=== PATIENT | male | born 1955 | race Caucasian/White ===

== ENCOUNTER → 2016-12-28 | Outpatient (CLI) | payer BC ==
[~2016-12-28] MED LIST: ADVAIR 100-501 EAC1 INH; ADVAIR 5001 DISK W/D; ADVAIR 5001 DISK W/D PO; ALBUTEROL17 GM; ALBUTEROL17 GM INH; ATROVENT HFA12.9 GM; CIPRO PO; CLARITIN10 M2 PO; COMBIVENT INH14.7 GM INH; COMPLERA TABLE1 EACH PO; COUMADIN PO; DOXYCYCLINE HY100 M3 PO; FISH OIL 1,0001 CAP PO; FLEXERIL; FLEXERIL PO; FLOMAX0.4 M1 PO; FLONASE16 GM; FROVA2.5 MG PO; LORTAB 10-5001 EACH PO; MICRO-K PO; MYCOSTATIN15 GM TOP; NEXIUM PO; NORCO 5/325 TAB1 TAB PO; OXYGEN INH; PERCOCET 10/3251 TAB PO; PERCOCET10; PHENERGAN25 MG PO; PRILOSEC PO; PROAIR HFA8.5 GM INH; PROVENTIL INH0.5 ML HHN; PROVENTIL INH0.5 ML NEB; SINGULAIR; SINGULAIR PO; STOOL SOFTENER; TAMIFLU75 MG PO; ZANAFLEX; ZANAFLEX PO; ZITHROMAX PO; ZYRTEC; ZYRTEC PO; [UNRECOGNIZED DRUG - OTHER] PO; [UNRECOGNIZED DRUG - REMARK]
[2016-12-28 12:20] LABS: BASOPHIL# 0.1 X10e3 (0-0.3); EOSINOPHIL# 0.1 X10e3 (0-0.7); EOSINOPHIL% 2.8 % (0.0-7.0); HEMATOCRIT 45.6 % (38.0-50.0); HEMOGLOBIN 14.9 gm/dL (13.0-16.0); LYMPHOCYTE% 41.6 % (17.0-45.0); MEAN CELL VOLUME 85.9 FL (83-96); MEAN CORPUSCULAR HEMOGLOBIN 28.1 PG (28-34); MEAN CORPUSCULAR HGB CONC 32.7 g/dL (30-36); MEAN PLATELET VOLUME 8.5 FL (6.5-11.5); MONOCYTE# 0.5 X10e3 (0-1.0); MONOCYTE% 9.7 % (3.0-12.0); NEUTROPHIL# 2.1 X10e3 (1.5-7.1); NEUTROPHIL% 43.9 % (40-75); PLATELET COUNT 212 X10e3 (140-420); RED BLOOD COUNT 5.31 X10e (3.90-5.60); WHITE BLOOD COUNT 4.7 X10e3 (4.0-10.5)
[2016-12-28 12:22] LABS: DIFF IND NO
[2016-12-28 13:11] LABS: ALBUMIN SERUM 4.5 g/dL (3.5-5.0); ALKALINE PHOSPHATASE 57 U/L (32-92); ALT (SGPT) 16 U/L (10-40); AST (SGOT) 17 U/L (10-42); BILIRUBIN,TOTAL 0.9 mg/dL (0.2-2.0); BLOOD UREA NITROGEN 14 mg/dL (9-23); CALCIUM SERUM 9.3 mg/dL (8.4-10.2); CARBON DIOXIDE 28 mmol/L (22-31); CHLORIDE 107 mmol/L (100-111); GLOM FILT RATE Estimated ABOVE60 mL/min (>60); GLUCOSE FASTING 85 mg/dL (70-110); POTASSIUM 4.4 mmol/L (3.5-5.1); PROTEIN TOTAL SERUM 7.7 g/dL (6.0-8.3); SODIUM 137 mmol/L (135-145)
[2016-12-30 17:05] LABS: CD4 % (PNL) 22 % (30-61); HIV1 LOG COPIES/ML <1.30 (<1.30); HIV1COPIES/ML <20 (<20)
== END | disposition home or self-care (01) ==
LOC: CLAB 11:33
PROVIDERS: Internal Medicine Infectious Disease
DX: B20 Human immunodeficiency virus [HIV] disease (principal); Z79.899 Other long term (current) drug therapy
CPT/HCPCS: 36415; 80053; 85025; 86361; 87536

== ENCOUNTER → 2017-02-15 | Day surgery (SDC) | payer BC ==
--- NOTE | ~2017-02-15 | OR ---
Unit #: [id number] #: [id number] Patient: CARYL RICHARDS [id number] [address] [place], [place] [address] [id number] O MR#: [id number] NAME: CARYL RICHARDS ROOM: Date of Procedure: 02/15/2017 Admission Date: 02/15/2017 Surgeon: Tae Carrillo M.D. : 1955 Attending Physician: Tae Carrillo M.D. Primary Care Physician: Lindsay Jackson M.D. OPERATIVE REPORT PREOPERATIVE DIAGNOSES Neck pain, cervical radiculopathy, degenerative cervical disk disease, cervical spinal stenosis. POSTOPERATIVE DIAGNOSES Neck pain, cervical radiculopathy, degenerative cervical disk disease, cervical spinal stenosis. PROCEDURE PERFORMED Cervical epidural steroid injection with intravenous sedation and fluoroscopic guidance for needle localization. INDICATIONS FOR PROCEDURE The patient is a 61-year-old male with return of neck and bilateral upper extremity pain due to multilevel multifactorial degenerative cervical disk disease, most significant at C4 through C7. This flared up during therapy for his knee. In the past, he had done well with epidural steroids in 2013 that gave him little over a year of improvement. His symptom complex again is consistent with his irritation. He failed to settle with conservative measures, so the plan is to repeat an epidural steroid injection based on history, pathology, symptomatology, and treatment options. DESCRIPTION OF PROCEDURE The patient was placed in a seated position. Standard monitors were applied. 2 mg of Versed were given for sedation and anxiolysis, which were adequate. Vital signs remained stable. Sterile prep and drape then of the cervical area was performed. The skin at the C5-C6 level was localized with 1% lidocaine. An 18-gauge MaxCDNtead needle was then advanced via hanging drop technique and fluoroscopic guidance in toward the epidural space. The patient did not complain of pain or paresthesia during needle advancement. After confirming proper positioning with fluoroscopy and radiographic contrast, 80 mg of Depo-Medrol and 2 mL of 0.25% bupivacaine were deposited. The patient tolerated the procedure well and was discharged to the recovery room in stable condition. Dictated by... Cameron Li/mikey TD: 02/16/2017 03:02 Unit #: [id number] #: [id number] Patient: CARYL RICHARDS JOB #: [id number] OPERATIVE REPORT Page 1 of 1 X Tae Carrillo MD X PROCEDURE OPERATIVE NOTE
== END | disposition home or self-care (01) ==
LOC: CCSC 08:05
DX: M50.121 Cervical disc disorder at C4-C5 level with radiculopathy (principal); M50.122 Cervical disc disorder at C5-C6 level with radiculopathy; M50.123 Cervical disc disorder at C6-C7 level with radiculopathy; M48.02 Spinal stenosis, cervical region
CPT/HCPCS: J1040; J2250

== ENCOUNTER → 2017-03-01 | Day surgery (SDC) | payer BC ==
--- NOTE | ~2017-03-01 | OR ---
Unit #: [id number] #: [id number] Patient: CARYL RICHARDS [id number] [address] [place], [place] [address] [id number] O MR#: [id number] NAME: CARYL RICHARDS ROOM: Date of Procedure: 03/01/2017 Admission Date: 03/01/2017 Surgeon: Tae Carrillo M.D. : 1955 Attending Physician: Tae Carrillo M.D. Primary Care Physician: Lindsay Jackson M.D. PROCEDURE OPERATIVE NOTE PREOPERATIVE DIAGNOSIS Neck pain, cervical radiculopathy, degenerative cervical disc disease, cervical spinal stenosis. POSTOPERATIVE DIAGNOSIS Neck pain, cervical radiculopathy, degenerative cervical disc disease, cervical spinal stenosis. PROCEDURE PERFORMED Cervical epidural steroid injection with fluoroscopic guidance and needle localization. HISTORY The patient is a 61-year-old male with neck and bilateral upper extremity radicular pain for multiple years. He has failed conservative treatment and epidural steroids had helped until about three years ago when he had resurgence of the pain. The plan is to repeat those injections. He has significant disease at C4-C5 and C5-C6 and C6-C7 levels. Initial injection two weeks ago resulted in significant improvement in the neck and arm pain. Based on his good partial response of pathology and symptomatology we will proceed with the second injection today. ANESTHESIA Local. PROCEDURE The patient was placed in the seated position. Standard monitors were applied. A sterile prep and drape of the cervical area was performed. The skin at the C5-C6 level was localized with 1% lidocaine. An 18-gauge Mahindra REVAtead needle was then advanced via the hanging drop technique and fluoroscopic guidance in toward the epidural space. The patient did not complain of pain or paresthesia. After confirming proper positioning on fluoroscopy, 80 mg of Depo-Medrol and 2 mL of 0.25% bupivacaine were deposited. The patient tolerated the procedure otherwise well and was discharged to the recovery room in stable condition. Dictated by... Tae Carrillo M.D. LHP/gz Unit #: [id number] #: [id number] Patient: CARYL RICHARDS TD: 03/01/2017 09:43 JOB #: [id number] CC: Cameron Li M.D. PROCEDURE OPERATIVE NOTE Page 1 of 1 X Tae Carrillo MD X PROCEDURE OPERATIVE NOTE
== END | disposition home or self-care (01) ==
LOC: CCSC 08:12
DX: M50.121 Cervical disc disorder at C4-C5 level with radiculopathy (principal); M50.122 Cervical disc disorder at C5-C6 level with radiculopathy; M50.123 Cervical disc disorder at C6-C7 level with radiculopathy; M48.02 Spinal stenosis, cervical region
CPT/HCPCS: J1040; J2250

== ENCOUNTER → 2017-03-15 | Day surgery (SDC) | payer BC ==
--- NOTE | ~2017-03-15 | OR ---
Unit #: [id number] #: [id number] Patient: CARYL RICHARDS [id number] [address] [address] [id number] O MR#: [id number] NAME: CARYL RICHARDS ROOM: Date of Procedure: 03/15/2017 Admission Date: 03/15/2017 Surgeon: Tae Carrillo M.D. : 1955 Attending Physician: Tae Carrillo M.D. Primary Care Physician: Lindsay Jackson M.D. OPERATIVE REPORT JOB NOTE: CC: [facility]. PREOPERATIVE DIAGNOSES Neck pain, cervical radiculopathy, degenerative cervical disk disease, degenerative cervical facet disease. POSTOPERATIVE DIAGNOSES Neck pain, cervical radiculopathy, degenerative cervical disk disease, degenerative cervical facet disease. PROCEDURE PERFORMED Cervical epidural steroid injection with fluoroscopic guidance for needle localization. INDICATIONS FOR PROCEDURE The patient is a 61-year-old male presented with neck and bilateral upper extremity pain, paresthesia, and numbness. Workup demonstrated multilevel cervical disk disease from C4 through C7 with annular fissure and protrusions with left most significant at C5 and C6 and to the right at the C6-C7. The patient had failed to settle with conservative treatment. Epidural steroid injection done very well for him in the past. Decision was made to repeat these injections to be done in the last month or so. He has gotten added improvement. He is not back down to the prior baseline. Plan is to repeat the final injection today. DESCRIPTION OF PROCEDURE The patient was placed in the seated position. Standard monitors were applied. Sterile prep and drape then of the cervical area was performed. The skin then at the C5-C6 level was localized with 1% lidocaine. An 18-gauge Attraction Worldtead needle was advanced then via hanging drop technique and fluoroscopic guidance in toward the epidural space. The patient did not complain of pain or paresthesia during needle advancement. After confirming proper positioning with fluoroscopy and radiographic contrast, 80 mg of Depo-Medrol and 2 mL of 0.25% bupivacaine were deposited. The patient tolerated the procedure otherwise well and was discharged to the recovery room in stable condition. Dictated by... Tae Carrillo M.D. P/modl Unit #: [id number] #: [id number] Patient: CARYL RICHARDS TD: 03/15/2017 18:32 JOB #: [id number] OPERATIVE REPORT Page 1 of 1 X Tae Carrillo MD X PROCEDURE OPERATIVE NOTE
== END | disposition home or self-care (01) ==
LOC: CCSC 08:12
DX: M50.121 Cervical disc disorder at C4-C5 level with radiculopathy (principal); M50.122 Cervical disc disorder at C5-C6 level with radiculopathy; M50.123 Cervical disc disorder at C6-C7 level with radiculopathy; M53.82 Other specified dorsopathies, cervical region
CPT/HCPCS: J1040; J2250

== ENCOUNTER → 2017-07-02 | Outpatient (CLI) | payer BC ==
[2017-07-02 10:27] LABS: BASOPHIL# 0.1 X10e3 (0-0.3); BASOPHIL% 2.3 % (0-2.5); EOSINOPHIL# 0.1 X10e3 (0-0.7); EOSINOPHIL% 2.6 % (0.0-7.0); HEMATOCRIT 41.9 % (38.0-50.0); HEMOGLOBIN 14.3 gm/dL (13.0-16.0); LYMPHOCYTE# 1.6 X10e3 (1.0-3.5); LYMPHOCYTE% 31.8 % (17.0-45.0); MEAN CELL VOLUME 87.4 FL (83-96); MEAN CORPUSCULAR HEMOGLOBIN 29.8 PG (28-34); MEAN CORPUSCULAR HGB CONC 34.1 g/dL (30-36); MEAN PLATELET VOLUME 7.9 FL (6.5-11.5); MONOCYTE# 0.5 X10e3 (0-1.0); MONOCYTE% 9.9 % (3.0-12.0); NEUTROPHIL# 2.8 X10e3 (1.5-7.1); NEUTROPHIL% 53.4 % (40-75); PLATELET COUNT 193 X10e3 (140-420); RED CELL DISTRIBUTION WIDTH 14.8 % (11.0-15.5); WHITE BLOOD COUNT 5.2 X10e3 (4.0-10.5)
[2017-07-02 10:35] LABS: DIFF IND NO
[2017-07-02 11:46] LABS: ALBUMIN SERUM 4.4 g/dL (3.5-5.0); BILIRUBIN,TOTAL 0.5 mg/dL (0.2-2.0); BUN/CREATININE RATIO 10.9; CALCIUM SERUM 9.3 mg/dL (8.4-10.2); CREATININE SERUM 1.1 mg/dL (0.6-1.4); GLOM FILT RATE Estimated 70.6 mL/min (>60); POTASSIUM 4.1 mmol/L (3.5-5.1); PROTEIN TOTAL SERUM 7.2 g/dL (6.0-8.3)
[2017-07-03 16:25] LABS: HIV1 LOG COPIES/ML <1.30 (<1.30); HIV1COPIES/ML <20 (<20)
[2017-07-03 19:51] LABS: CD4 % (PNL) 24 % (30-61)
== END | disposition home or self-care (01) ==
LOC: CLAB 09:51
PROVIDERS: Internal Medicine Infectious Disease
DX: B20 Human immunodeficiency virus [HIV] disease (principal); Z79.899 Other long term (current) drug therapy
CPT/HCPCS: 36415; 80053; 85025; 86361; 87536